=== PATIENT | male | born 1980 | race Caucasian/White ===

== ENCOUNTER 2022-03-09 14:25 | Outpatient (CLI) | payer BC, SELFPAY ==
--- NOTE | 2022-03-09 14:45 | MR_ITS ---
WS: [id number] MRA HEAD TECHNIQUE: Axial 3-D TOF images obtained with axial images and axial, sagittal, and coronal 2-D refor matted images. CLINICAL INFORMATION: G43.909 - Migraine, unspecified, not intractable, without... COMPARISON: None. FINDINGS: Dominant distal RIGHT vertebral artery. LEFT distal vertebral artery ends in PICA. Basilar artery is patent. Normal vascularity to the [address] territory bilaterally. Both ICAs are patent skull base. Normal vascularity to the LARY and MCA territories bilaterally. No ev idence of flow-limiting stenosis or aneurysm. MR/MR angio head wo con [id number] IMPRESSION: 1. No evidence of flow-limiting stenosis or aneurysm. 2. RIGHT dominant distal vertebral artery. LEFT distal vertebral artery ends i n PICA. 3. Otherwise unremarkable intracranial MRA.
--- NOTE | 2022-03-09 15:00 | MR_ITS ---
WS: [id number] MRI HEAD WITHOUT CONTRAST TECHNIQUE: Sagittal T1, T2 axial, T2 axial FLAIR, axial and coronal T1 images, axial susceptibility w eighted imaging, axial diffusion weighted images, and coronal T2 images were obtained. CLINICAL INFORMATION: G43.909 - Migraine, unspecified, not intractable, without... COMPARISON: None. FINDINGS: No evidence of restricted diffusion to suggest acute ischemia. Ventricular system and basal cisterns are patent. Tiny amount of hazy periventricular T2 signal abnormality. 2 or 3 tiny foci of T2 hyperin tensity in the subcortical and periventricular white matter can be seen with migraine headaches. No o ther suspicious intracanal signal abnormalities. Normal reis-white differentiation. Normal posterior nasopharynx. Normal parapharyngeal fat. Normal posterior fossa. Normal vascular flow voids at the skull base. No extra-axial fluid collection s. No evidence of mass or mass effect. Mild mucosal thickening in the ethmoid air cells. Mastoid air cells are well aerated. Normal optic chiasm and pituitary infundibulum. Temporal lobes and hippocampa l formations are normal in appearance. Normal cavernous sinuses and Meckel's cave. No hemosiderin on susceptibly weighted images. MR/MR head wo con* [id number] IMPRESSION: 1. No evidence of restricted diffusion to suggest acute ischemia. 2. Tiny amount of hazy periventricular T2 signal abnormality. A few tiny foci of T2 hyperintensity in the periventricular and subcortical white matter can be seen with migraine headaches. 3. No other suspicious intracranial signal abnormalities. 4. Normal posterior fossa and cerebellum. 5. No other remarkable findings.
== END 2022-03-09 14:26 | disposition home or self-care (01) ==
PROVIDERS: PCP Family Medicine; Visit Provider Specialist
DX: G43.909 Migraine, unspecified, not intractable, without status migrainosus (principal)
CPT/HCPCS: 70544; 70551